=== PATIENT | female | born 1955 | race Caucasian/White ===

== ENCOUNTER 2021-01-26 09:30 | Day surgery (SDC) | payer BC ==
[2021-01-23 09:30] VITALS: BMI 25.2
[2021-01-26] MEDS ORDERED: Lidocaine 1% MPF 2 ML VIAL ONE (09:47)
[2021-01-26] MEDS ORDERED: PROPOFOL 40 ML ONE (10:57)
[2021-01-26] MEDS ORDERED: Midazolam HCl 2 mg/2 ml Vial ONE (10:57)
[2021-01-26] MEDS ORDERED: PROPOFOL 20 ML ONE (11:36)
== END 2021-01-26 12:45 | disposition home or self-care (01) ==
LOC: CSHSDC 09:30
PROVIDERS: ATTEND Internal Medicine Gastroenterology
PROC: 0DJD8ZZ Inspection of Lower Intestinal Tract, Via Natural or Artificial Opening Endoscopic (ICD-10-PCS; principal; 2021-01-26)
DX: Z12.11 Encounter for screening for malignant neoplasm of colon (principal); Q43.8 Other specified congenital malformations of intestine; K62.89 Other specified diseases of anus and rectum; Z80.0 Family history of malignant neoplasm of digestive organs; E03.9 Hypothyroidism, unspecified; E78.5 Hyperlipidemia, unspecified; Z86.010 Personal history of colon polyps
CPT/HCPCS: J2250; J2704